=== PATIENT | male | born 1950 | race Caucasian/White ===

== ENCOUNTER 2019-07-27 05:21 | Inpatient (IN) | payer MEDICARE, OTHER ==
[~2019-07-27 05:21] MED LIST: ACETAMINOPHEN 325 MG TABLET PO PRN; CEFAZOLIN SODIUM 2 GM in DEXTROSE 5%-WATER 100 ML IV PRN; CELECOXIB 200 MG CAPSULE PO PRN; LACTATED RINGERS 1000 ML IV PRN; LIDOCAINE 0.5% INJ-PF (5 MG/ML) 50 ML SDV SUBCUT PRN; ONDANSETRON HCL INJ/PF 4 MG/2 ML SDV IV PRN; OXYCODONE HCL SR 10 MG TABLET PO PRN; TRAMADOL HCL 50 MG TABLET PO PRN; TRANEXAMIC ACID INJ/PF 1,000 MG/10 ML SDV IV PRN; VANCOMYCIN HCL 1,000 MG in DEXTROSE 5%-WATER 250 ML IV PRN
[2019-07-27] MEDS ORDERED: CELECOXIB 200 MG CAPSULE ONE (06:10)
[2019-07-27] MEDS ORDERED: OXYCODONE HCL SR 10 MG TABLET PO ONE (06:11)
[2019-07-27] MEDS ORDERED: ONDANSETRON HCL INJ/PF 4 MG/2 ML SDV ONE ×2 (06:11→07:00)
[2019-07-27] MEDS ORDERED: TRAMADOL HCL 50 MG TABLET ONE (06:13)
[2019-07-27] MEDS ORDERED: TRANEXAMIC ACID INJ/PF 1,000 MG/10 ML SDV ONE (06:34)
[2019-07-27] MEDS ORDERED: ACETAMINOPHEN 325 MG TABLET ONE (06:39)
[2019-07-27] MEDS ORDERED: FENTANYL CITRATE INJ/PF 100 MCG/2 ML AMPUL ONE ×3 (07:00→10:47)
[2019-07-27] MEDS ORDERED: MIDAZOLAM 2 MG/2 ML INJ ONE (07:00)
[2019-07-27] MEDS ORDERED: PROPOFOL INJ 200 MG/20 ML VIAL IV ONE (07:01)
[2019-07-27] MEDS ORDERED: LIDOCAINE 0.5% INJ-PF (5 MG/ML) 50 ML SDV ONE (07:01)
[2019-07-27] MEDS ORDERED: BACITRACIN INJ 50,000 UNIT VIAL ONE (07:13)
[2019-07-27] MEDS ORDERED: BUPIVACAINE HCL 0.25 % INJ/PF (2.5 MG/1 ML) 30 ML VIAL ONE (07:13)
[2019-07-27] MEDS ORDERED: VANCOMYCIN HCL INJ 1000 MG VIAL ONE (07:13)
[2019-07-27] MEDS ORDERED: GENTAMICIN SULFATE INJ 80 MG/2 ML VIAL ONE (07:13)
[2019-07-27] MEDS ORDERED: KETOROLAC TROMETHAMINE 60 MG/2 ML SDV ONE (07:14)
[2019-07-27] MEDS ORDERED: MORPHINE SULFATE 10 MG/ML INJ ONE (07:17)
[2019-07-27] MEDS ORDERED: MEPERIDINE HCL/PF INJ 25 MG/1 ML DISP.SYRIN IV PRN (08:47)
[2019-07-27] MEDS ORDERED: PROMETHAZINE HCL INJ 25 MG/1 ML VIAL IV PRN ×2 (08:47)
[2019-07-27] MEDS ORDERED: DIPHENHYDRAMINE HCL 50 MG/ML VIAL IV PRN (08:47)
[2019-07-27] MEDS ORDERED: MORPHINE SULFATE 10 MG/ML INJ IV PRN (08:47)
[2019-07-27] MEDS ORDERED: OXYCODONE-ACETAMINOPHEN 5-325 MG TABLET PO PRN ×2 (08:47)
[2019-07-27] MEDS ORDERED: ONDANSETRON HCL INJ/PF 4 MG/2 ML SDV IV PRN (08:47)
[2019-07-27] MEDS ORDERED: FENTANYL CITRATE INJ/PF 100 MCG/2 ML AMPUL IV PRN ×3 (08:47)
[2019-07-27] MEDS ORDERED: DEXAMETHASONE SOD PHOSPHATE INJ 4 MG/1 ML VIAL ONE ×2 (10:00→10:05)
[2019-07-27] MEDS ORDERED: SUCCINYLCHOLINE CHLORIDE INJ 200 MG/10 ML VIAL ONE (10:00)
--- NOTE | 2019-07-27 11:03 | Operative Report ---
Operative Report DATE OF SURGERY: 07/27/19 PREOPERATIVE DIAGNOSIS: Right knee primary osteoarthritis POSTOPERATIVE DIAGNOSIS: Right knee primary osteoarthritis OPERATION: Right total knee replacement SURGEON: ALEX GAITAN JR ANESTHESIA: Other - Adductor Canal in the PACU COMPLICATIONS: none ESTIMATED BLOOD LOSS: 50 cc PROCEDURE: Components: Right total knee: 67.5 femur, 79 x 10 tibia, and a T4 patella BRIEF HISTORY: 77 year old male/female with severe degenerative arthritis of right knee, which has failed conservative treatment and has elected for a total knee arthroplasty. Risks include but are not limited to bleeding, infection, anesthesia, , injury to nerve or vessel, pain, scar, leg length inequality, dislocation, future surgery, and blood clots. Patient read through the pre-op counseling form and signed and solicited for surgery on their right knee. OPERATIVE PROCEDURE: Patient was brought to the operating room on and underwent general anesthesia due to a discussion between the patient and the anesthesiologist. After proper anesthesia was obtained, patient was positioned, padded, prepped, and draped in the usual sterile fashion on the operating room table. 2 grams of Ancef and 1 g of vancomycin were given. Appropriate time out was performed. Anterior incision and medial-parapatella approach was performed. Severe degenerative arthritis was noted. Osteophytes were removed from the femur and tibia, and the remainder of the ACL and PCL were removed. The distal femur was drilled, the canal was irrigated and the distal femoral guide was placed. The distal femur was cut to 5 degrees of varus. The proximal tibia was then prepared and cut perpendicular to the tibial shaft axis and measured to a 79 tibia. The tensor was placed in flexion and the femur was sized to exceed 7.5. The AP block was placed and anterior-posterior cuts were made. Posterior osteophytes were removed and the flexion gap measured to be 10 mm. The tensor was placed in extension and the extension gap was balanced with releases until the goniometer on the tensor measured to 0. A 10 block was used to confirm symmetric flexion and extension gaps. The femoral notch and chamfer cuts were made, and trial femur placed which had excellent fit. The rotating tibial plastic was placed and rotation marked. We utilized a Vanguard III 60 revision tibial baseplate in order to obtain extra stability with a 40 mm stem. The baseplate was pinned in place at appropriate rotation and reamed up to an 18 stem. A small tibial cruciate wing was broached. Following this a 10 mm trial was placed as well as a femoral trial. The patella AP aspect was measured to be 6 mm and patella was cut parallel to the anterior patella surface. A 34 mm button was placed medially and superiorly as possible and the patella-button construct again measured 26 mm. The patella tracked well. No need for a lateral release. He had excellent balance and stability and we proceeded with these measurements. Cement fixation places made on the femur and tibia, and pulsatile irrigation of the rupesh and soft tissue surfaces. The rupesh surfaces were cleaned and dried, and cementation of the femur, tibia, and patella. Periarticular injection with Marcaine and Toradol was performed. The knee was irrigated with antibiotic solution, betadine solution, and antibiotic solution. A gram of Vancomycin was placed intra-articularly. The extensor mechanism was closed with number 2 Stratofix, the subcutaneous tissue closed with 2-0 Vicryl and the skin closed with 3-0 running monocryl. A silver dressing was applied. All needle sponge and instrument counts were correct. Patient was awakened from sedation anesthesia and taken to recovery room in good condition. Alex Gaitan DO
[2019-07-27] MEDS ORDERED: LIDOCAINE 2% INJ (20 MG/ML) 20 ML MDV ONE (11:04)
[2019-07-27] MEDS ORDERED: ROPIVACAINE HCL 0.5% INJ/PF (5 MG/1 ML) 30 ML SDV ONE (11:04)
[2019-07-27] MEDS ORDERED: LIDOCAINE 2%/EPINEPHRINE INJ 20 ML VIAL ONE (11:04)
--- NOTE | 2019-07-27 11:08 | RADIOLOGY REPORT (SQ) ---
EXAM DESCRIPTION: KNEE RIGHT 2 VIEWS COMPLETED DATE/TIME: 07/27/2019 10:56 am REASON FOR STUDY: post op pacu M17.0 BILATERAL PRIMARY OSTEOARTHRITIS OF KNEE COMPARISON: None. NUMBER OF VIEWS: Two views. TECHNIQUE: AP and lateral radiographic images acquired of the right knee. LIMITATIONS: None. FINDINGS: Postoperative images show a right knee arthroplasty in good position. IMPRESSION: Right knee arthroplasty. Refer to operative note for further information. TECHNICAL DOCUMENTATION: JOB ID: [id number] [employer]- All Rights Reserved Reading location - IP/workstation name: [email or web address]
[2019-07-27] MEDS ORDERED: TRAMADOL HCL 50 MG TABLET PO PRN ×2 (13:11→18:35)
[2019-07-27] MEDS ORDERED: OXYCODONE HCL IR 5 MG TABLET PO PRN ×3 (13:11→18:34)
[2019-07-27] MEDS: ACETAMINOPHEN 325 MG TABLET PO SCH ×2 (15:55→21:37)
[2019-07-27] MEDS: GABAPENTIN 100 MG CAPSULE PO SCH (19:54)
[2019-07-27] MEDS: CEFAZOLIN SODIUM 2 GM in DEXTROSE 5%-WATER 100 ML IV SCH (19:54)
[2019-07-28] MEDS: CEFAZOLIN SODIUM 2 GM in DEXTROSE 5%-WATER 100 ML IV SCH (02:02)
[2019-07-28] MEDS: ACETAMINOPHEN 325 MG TABLET PO SCH (05:41)
--- NOTE | 2019-07-28 07:42 | PDOC PROGRESS REPORT ---
Subjective Progress Note for:: 07/28/19 Subjective:: The patient is doing excellent this morning. He is ambulating with minimal pain. He has no new signs or symptoms. No overnight issues or reports of shortness of breath, chest pain. Reason For Visit: M17.0 BILATERAL PRIMARY OSTEOARTHRITIS OF KNEE Physical Exam Vital Signs: Temp Pulse Resp BP Pulse Ox 98.6 F 83 16 126/77 H 96 07/28/19 00:00 07/28/19 00:00 07/28/19 00:00 07/28/19 00:00 07/28/19 00:00 Intake & Output 07/27/19 07/28/19 07/29/19 06:59 06:59 06:59 Intake Total 3052 Output Total 4020 Balance -968 Weight 69.85 kg 80.2 kg Physical Exam: General appearance: PRESENT: no acute distress, cooperative, well-nourished Head exam: PRESENT: atraumatic, normocephalic Eye exam: PRESENT: EOMI Ear exam: PRESENT: normal external ear exam Mouth exam: PRESENT: neck supple Neck exam: ABSENT: tracheal deviation Respiratory exam: PRESENT: symmetrical, unlabored. ABSENT: accessory muscle use, wheezes Pulses: PRESENT: normal radial pulses, normal dorsalis pedis pul Vascular exam: PRESENT: normal capillary refill GI/Abdominal exam: ABSENT: distended, firm Extremities exam: PRESENT: full ROM of bilateral shoulders, elbows wrists, knees, hips and ankles without pain Musculoskeletal exam: PRESENT: full ROM, normal inspection Neurological exam: PRESENT: alert, awake, oriented to person, oriented to place, oriented to time Psychiatric exam: PRESENT: appropriate affect. ABSENT: agitated Focused psych exam: ABSENT: catatonic Skin exam: PRESENT: intact. ABSENT: dry All as above aside from that noted in the HPI and the following: Right lower extremity neurovascular intact. Pulses 2+. Wound clean dry and intact. Moderate swelling and ecchymosis as expected for postoperative day #1. Compartments soft. Results Impressions: Knee X-Ray 07/27/19 10:36 IMPRESSION: Right knee arthroplasty. Refer to operative note for further information. Assessment & Plan - Diagnosis (1) Osteoarthritis of right knee Is this a current diagnosis for this admission?: Yes Plan: Patient is doing great for postoperative day #1. He is ambulating voluntarily with minimal pain. -He is to begin aspirin daily today -Pain medications have been prescribed and given to him in the preoperative setting -He has been giving postoperative instructions and if he has any further questions he is to call my office -Postoperative follow-up appointment has been arranged for 10 to 14 days -He may leave the dressing in place for 7 days. -Weightbearing as tolerated, activity as tolerated, PT OT as soon as possible on an outpatient setting - Complete post operative antibiotics - Time Time Spent with patient: 15-24 minutes
[2019-07-28] MEDS ORDERED: METFORMIN HCL 500 MG TABLET PO SCH (08:00)
[2019-07-28] MEDS: GABAPENTIN 100 MG CAPSULE PO SCH (09:26)
[2019-07-28] MEDS ORDERED: CELECOXIB 200 MG CAPSULE PO SCH (10:00)
[2019-07-28] MEDS ORDERED: ASPIRIN 325 MG TABLET PO SCH (10:00)
[2019-07-28] MEDS ORDERED: DOCUSATE SODIUM 100 MG CAPSULE PO SCH (10:00)
[2019-07-28] MEDS ORDERED: ACETAMINOPHEN 325 MG TABLET PO SCH (10:00)
[2019-07-28] MEDS ORDERED: (PENDING PHARMACY ID) (Metformin Hcl [Metformin Hcl Er] 500 MG) PO SCH (10:00)
[2019-07-28] MEDS ORDERED: ACETAMINOPHEN 1300 MG PO SCH (10:00)
[2019-07-28 13:16] VITALS: BP 126/77
--- NOTE | 2019-07-28 16:42 | PDOC DISCHARGE SUMMARY ---
Impression - Admit/DC Date/PCP Admission Date/Primary Care Provider: 07/27/19 05:21 Discharge Date: 07/28/19 - Discharge Diagnosis (1) Osteoarthritis of right knee Is this a current diagnosis for this admission?: Yes - Assessment Summary: Patient was admitted to the hospital status post right total knee arthroplasty for perioperative pain management and medical management. He was evaluated over the course of his stay and deemed to be stable throughout without any further medical needs requiring sustained hospitalization. On postoperative day #1 he is doing very well and ambulating on his own. He was a eating drinking and had return to normal functioning including urinating and passing gas. As of today he is happy to be doing very well and wishing to re turn home. He has worked with physical therapy who is also deemed him stable for discharge home. He has a supportive social structure at home who will help him when he arrives. He has been given instructions and all questions were answered. He is to follow-up in my office in 10 to 14 days. He is being discharged home at this time. - Additional Information Resuscitation Status: Full Code Discharge Diet: As Tolerated Discharge Activity: Activity As Tolerated, Keep Legs Elevated, No Lifting Over 10 Pounds, Slowly Increase Activity, Walk Frequently Referrals: ALEX GAITAN JR, DO [ACTIVE PROVISIONAL STAFF] - 08/14/19 1:20 pm Home Medications: Metformin HCl [Metformin HCl ER] 500 mg PO DAILY 07/17/19 Omeprazole 20 mg PO QPM 07/17/19 Docusate Sodium [Colace 100 mg Capsule] 200 mg PO DAILY 07/27/19 Acetaminophen [Tylenol 325 mg Tablet] 975 mg PO Q8 tablet 07/28/19 Aspirin [Aspirin 325 mg Tablet] 325 mg PO DAILY tablet 07/28/19 Celecoxib [Celebrex 200 mg Capsule] 200 mg PO DAILY capsule 07/28/19 Gabapentin [Neurontin 100 mg Capsule] 100 mg PO BID capsule 07/28/19 Oxycodone HCl [Oxy-Ir 5 mg Tablet] 5 mg PO Q4HP PRN tablet 07/28/19 Oxycodone HCl [Oxy-Ir 5 mg Tablet] 10 mg PO Q4HP PRN tablet 07/28/19 Tramadol HCl [Ultram 50 mg Tablet] 50 mg PO Q4HP PRN tablet 07/28/19 History of Present Illiness History of Present Illness: TJ CHAPMAN is a 69 year old male Physical Exam Vital Signs: Temp Pulse Resp BP Pulse Ox 98.7 F 79 18 126/77 H 95 07/28/19 12:52 07/28/19 12:52 07/28/19 12:52 07/28/19 12:52 07/28/19 12:52 Intake & Output 07/27/19 07/28/19 07/29/19 06:59 06:59 06:59 Intake Total 3052 Output Total 4020 Balance -968 Weight 69.85 kg 80.2 kg Results Laboratory Results: POC Glucose 139 mg/dL (70-110) H 07/27/19 06:51 Impressions: Knee X-Ray 07/27/19 10:36 IMPRESSION: Right knee arthroplasty. Refer to operative note for further information. Stroke Is this a Stroke Patient?: No Acute Heart Failure - Is this a Heart Failure Patient?: No
[2019-07-28] MEDS ORDERED: PANTOPRAZOLE SODIUM 20 MG TABLET.DR PO SCH (18:00)
== END 2019-07-28 14:30 | disposition home or self-care (01) | DRG 470 ==
LOC: INOR 05:21 → 4S 12:08
PROVIDERS: ADMIT Orthopaedic Surgery; ATTEND Orthopaedic Surgery
PROC: 0SRC0J9 Replacement of Right Knee Joint with Synthetic Substitute, Cemented, Open Approach (ICD-10-PCS; principal; 2019-07-27 07:30)
DX: M17.11 Unilateral primary osteoarthritis, right knee (principal); Z79.899 Other long term (current) drug therapy
CPT/HCPCS: 01402; 82962; J0330; J0690; J1100; J1580; J1885; J2250; J2270; J2405; J2704; J2795; J3010; J3370; J3490; J7060

== ENCOUNTER 2019-08-25 06:05 | Observation (INO) | payer MEDICARE, OTHER ==
[~2019-08-25 06:05] MED LIST changes: +ACETAMINOPHEN 325 MG TABLET ONE; -ACETAMINOPHEN 325 MG TABLET PO PRN; -CEFAZOLIN SODIUM 2 GM in DEXTROSE 5%-WATER 100 ML IV PRN; +CELECOXIB 200 MG CAPSULE ONE; -CELECOXIB 200 MG CAPSULE PO PRN; +GABAPENTIN 100 MG CAPSULE ONE; -LACTATED RINGERS 1000 ML IV PRN; -LIDOCAINE 0.5% INJ-PF (5 MG/ML) 50 ML SDV SUBCUT PRN; -ONDANSETRON HCL INJ/PF 4 MG/2 ML SDV IV PRN; +ONDANSETRON HCL INJ/PF 4 MG/2 ML SDV ONE; +OXYCODONE HCL SR 10 MG TABLET PO ONE; -OXYCODONE HCL SR 10 MG TABLET PO PRN; +SCOPOLAMINE HYDROBROMIDE 1.5 MG PATCH.TD72 ONE; +TRAMADOL HCL 50 MG TABLET ONE; -TRAMADOL HCL 50 MG TABLET PO PRN; -TRANEXAMIC ACID INJ/PF 1,000 MG/10 ML SDV IV PRN; -VANCOMYCIN HCL 1,000 MG in DEXTROSE 5%-WATER 250 ML IV PRN
[2019-08-25] MEDS ORDERED: ONDANSETRON HCL INJ/PF 4 MG/2 ML SDV ONE (06:22)
[2019-08-25] MEDS ORDERED: FENTANYL CITRATE INJ/PF 100 MCG/2 ML AMPUL ONE ×2 (06:22→12:57)
[2019-08-25] MEDS ORDERED: PROPOFOL INJ 200 MG/20 ML VIAL IV ONE ×2 (06:22→12:57)
[2019-08-25] MEDS ORDERED: MIDAZOLAM 2 MG/2 ML INJ ONE ×2 (06:22→12:57)
[2019-08-25] MEDS ORDERED: LIDOCAINE 0.5% INJ-PF (5 MG/ML) 50 ML SDV ONE (06:23)
[2019-08-25] MEDS ORDERED: VANCOMYCIN HCL 1,000 MG in DEXTROSE 5%-WATER 250 ML IV PRN (07:30)
[2019-08-25] MEDS ORDERED: CEFAZOLIN 2 GM/D5W RTU 2 GM/50 ML RTUPB IV PRN (07:30)
[2019-08-25] MEDS ORDERED: EPINEPHRINE INJ/PF 1 MG/1 ML AMPULE ONE (08:37)
[2019-08-25] MEDS ORDERED: CEFAZOLIN SODIUM 2 GM in DEXTROSE 5%-WATER 100 ML IV PRN (10:15)
[2019-08-25] MEDS ORDERED: VANCOMYCIN HCL INJ 1000 MG VIAL ONE (12:38)
[2019-08-25] MEDS ORDERED: LIDOCAINE 1% INJ-PF (10 MG/ML) 30 ML SDV ONE (12:38)
[2019-08-25] MEDS ORDERED: BUPIVACAINE HCL 0.25 % INJ/PF (2.5 MG/1 ML) 30 ML VIAL ONE (12:38)
[2019-08-25] MEDS ORDERED: BACITRACIN INJ 50,000 UNIT VIAL ONE (12:38)
[2019-08-25] MEDS ORDERED: KETOROLAC TROMETHAMINE 60 MG/2 ML SDV ONE (13:05)
[2019-08-25] MEDS ORDERED: GENTAMICIN SULFATE INJ 80 MG/2 ML VIAL ONE (13:09)
[2019-08-25] MEDS ORDERED: TRANEXAMIC ACID INJ/PF 1,000 MG/10 ML SDV ONE ×2 (13:09→13:13)
[2019-08-25] MEDS ORDERED: PROMETHAZINE HCL INJ 25 MG/1 ML VIAL IV PRN ×2 (14:42)
[2019-08-25] MEDS ORDERED: ONDANSETRON HCL INJ/PF 4 MG/2 ML SDV IV PRN (14:42)
[2019-08-25] MEDS ORDERED: MORPHINE SULFATE 10 MG/ML INJ IV PRN ×2 (14:42→17:30)
[2019-08-25] MEDS ORDERED: FENTANYL CITRATE INJ/PF 100 MCG/2 ML AMPUL IV PRN ×3 (14:42)
[2019-08-25] MEDS ORDERED: MEPERIDINE HCL/PF INJ 25 MG/1 ML DISP.SYRIN IV PRN (14:42)
[2019-08-25] MEDS ORDERED: OXYCODONE-ACETAMINOPHEN 5-325 MG TABLET PO PRN ×2 (14:42)
[2019-08-25] MEDS ORDERED: DIPHENHYDRAMINE HCL 50 MG/ML VIAL IV PRN (14:42)
[2019-08-25] MEDS ORDERED: LIDOCAINE 2% INJ (20 MG/ML) 20 ML MDV ONE (16:10)
[2019-08-25] MEDS ORDERED: ROPIVACAINE HCL 0.5% INJ/PF (5 MG/1 ML) 30 ML SDV ONE (16:10)
[2019-08-25] MEDS ORDERED: LIDOCAINE 2%/EPINEPHRINE INJ 20 ML VIAL ONE (16:10)
[2019-08-25] MEDS ORDERED: ACETAMINOPHEN 1,000 MG/100 ML RTUPB IV ONE (16:53)
--- NOTE | 2019-08-25 17:16 | Operative Report ---
Operative Report DATE OF SURGERY: 08/25/19 PREOPERATIVE DIAGNOSIS: Left knee primary osteoarthritis POSTOPERATIVE DIAGNOSIS: Left knee primary osteoarthritis OPERATION: Left total knee arthroplasty SURGEON: ALEX GAITAN JR ANESTHESIA: GA COMPLICATIONS: None ESTIMATED BLOOD LOSS: 20 cc PROCEDURE: Components: Biomet Vanguard total knee: 65 femur, 79 x 12 tibia 360, and a 34 patella Additionally he had a 360 system used for his considerable bone loss in the medial aspect of his knee, in conjunction with a 18 x 40 splined knee stem with a small cruciate wing BRIEF HISTORY: 69year old male with severe degenerative arthritis of left knee, which has failed conservative treatment and has elected for a total knee arthroplasty. They had been having severe debilitating pain that was preventing him from performing daily activities including ambulating for short distances, getting in and out of there car, going up and down stairs, and overall decreasing their quality of life due to their avoidance of activity because of pain. Pain is constant but worse with activity he explains it is a dull ache and he felt like his knee was completely going to give out and he was no longer going to be able to walk, nothing improves the pain and though it reaches an 8 out of 10 to a 9 out of 10 the most debilitating thing is his severe varus d eformity locking and mechanical symptoms that lead him to not be able to trust his knee and feel that he actually functionally cannot walk and might fall and injure himself. They failed conservative management including ylxp-spx-rnopubu pain medication such as Tylenol and ibuprofen. X-rays demonstrated severe ctxv-sz-cqlj osteoarthritis with subchondral sclerosis osteophyte formation and joint space narrowing, additionally there is a very large medial defect leading to severe varus deformity due to his exceptionally severe osteoarthritis. Risks include but are not limited to bleeding, infection, anesthesia, , injury to nerve or vessel, pain, scar, leg length inequality, dislocation, future surgery, and blood clots. Patient read through the pre-op counseling form and signed and solicited for surgery on their left knee. OPERATIVE PROCEDURE: Patient was brought to the operating room on and underwent general anesthesia. After proper anesthesia was obtained, patient was positi oned, padded, prepped, and draped in the usual sterile fashion on the operating room table. 2 grams of Ancef and 1 g of vancomycin were given. Appropriate time out was performed. Anterior incision and medial-parapatella approach was performed. Severe degenerative arthritis was noted. Osteophytes were removed from the femur and tibia, and the remainder of the ACL and PCL were removed. The distal femur was drilled, the canal was irrigated and the distal femoral guide was placed. The distal femur was cut to 5 degrees of varus. The proximal tibia was then prepared and cut perpendicular to the tibial shaft axis and measured to a 79 tibia. The knee was then brought into extension and a 10 spacer block. This was tight, and so we needed to determine if we needed more space off of the ti ag or the distal femur. The tensor was placed in flexion and the femur was sized to 67.5. The AP block was placed and anterior-posterior cuts were made. Posterior osteophytes were removed and the 10 block was attempted to be placed into the flexion gap, however this was exceptionally tight. Therefore we downsized the femur to a 65, specifically removing the posterior condyles. A 10 block had appropriate balance at this point. The tensor was placed in extension and the extension gap was balanced with releases until the goniometer on the tensor measured to 0. He required a release of the MCL off of the distal insertion on the tibia. The femoral notch and chamfer cuts were made, and trial femur placed which had excellent fit. The rotating tibial plastic was placed and rotation marked. The stemmed tibial cutout was made for the stemmed tibial trial and excellent stability was had in flexion and extension. A wing broach was used to make cuts for the winged implant. The patella AP aspect was measured to 25 mm and patella was cut parallel to the anterior patella surface. A 34 mm button was placed medially and superiorly as possible and the patella- button construct again measured 25 mm. The patella tracked well. No need for a lateral release. Cement fixation places made on the femur and tibia, and pulsatile irrigation of the rupesh and soft tissue surfaces. The rupesh surfaces were cleaned and dried, and cementation of the femur, tibia, and patella. Periarticular injection with Marcaine and Toradol was performed. The knee was irrigated with antibiotic solution, betadine solution, and antibiotic solution. A gram of Vancomycin was placed intra-articularly. The extensor mechanism was closed with number 2 Stratofix, the subcutaneous tissue closed with 2-0 Vicryl and the skin closed with 3-0 running monocryl. A silver dressing was applied. All needle sponge and instrument counts were correct. Patient was awakened from sedation anesthesia and taken to recovery room in good condition. Alex Gaitan DO
[2019-08-25] MEDS ORDERED: OXYCODONE HCL IR 5 MG TABLET PO PRN (17:29)
[2019-08-25] MEDS ORDERED: TRAMADOL HCL 50 MG TABLET PO PRN (17:30)
[2019-08-25] MEDS ORDERED: PANTOPRAZOLE SODIUM 20 MG TABLET.DR PO PRN (17:33)
[2019-08-25] MEDS ORDERED: DIPHENHYDRAMINE HCL 25 MG CAPSULE PO PRN (17:33)
[2019-08-25] MEDS ORDERED: ZOLPIDEM TARTRATE 5 MG TABLET PO PRN (17:34)
[2019-08-25] MEDS ORDERED: DOCUSATE SODIUM 100 MG CAPSULE PO PRN (17:35)
[2019-08-25] MEDS ORDERED: ONDANSETRON 4 MG TAB.RAPDIS PO PRN (17:36)
[2019-08-25] MEDS ORDERED: NORMAL SALINE 1000 ML 1,000 ML IV PRN (17:36)
--- NOTE | 2019-08-25 17:51 | RADIOLOGY REPORT (SQ) ---
EXAM DESCRIPTION: KNEE LEFT 2 VIEWS COMPLETED DATE/TIME: 08/25/2019 5:03 pm REASON FOR STUDY: POST OP M17.12 UNILATERAL PRIMARY OSTEOARTHRITIS, LEFT KNEE COMPARISON: None. NUMBER OF VIEWS: Two views TECHNIQUE: Digital radiographic images of the left knee post-procedure. LIMITATIONS: None. FINDINGS: BONES: No worrisome or unexpected findings post-procedure. DEVICE: Total knee arthroplasty. SOFT TISSUES: No worrisome findings. Expected postoperative soft tissue changes. IMPRESSION: SATISFACTORY POSTOPERATIVE LEFT KNEE. TECHNICAL DOCUMENTATION: JOB ID: [id number] [employer]- All Rights Reserved Reading location - IP/workstation name: [email or web address]
[2019-08-25] MEDS: GABAPENTIN 100 MG CAPSULE PO SCH (21:38)
[2019-08-25] MEDS: ACETAMINOPHEN 325 MG TABLET PO SCH (21:38)
[2019-08-25] MEDS: CEFAZOLIN SODIUM 2 GM in DEXTROSE 5%-WATER 100 ML IV SCH (21:40)
[2019-08-25] MEDS: KETOROLAC TROMETHAMINE INJ/PF 30 MG/1 ML SDV IV SCH (21:40)
[2019-08-26] MEDS: ACETAMINOPHEN 325 MG TABLET PO SCH ×2 (05:03→14:24)
[2019-08-26] MEDS: CEFAZOLIN SODIUM 2 GM in DEXTROSE 5%-WATER 100 ML IV SCH (05:11)
[2019-08-26] MEDS: KETOROLAC TROMETHAMINE INJ/PF 30 MG/1 ML SDV IV SCH ×2 (05:13→14:47)
[2019-08-26] MEDS: OXYCODONE HCL IR 5 MG TABLET PO PRN ×2 (07:08→11:03)
--- NOTE | 2019-08-26 08:09 | PDOC PROGRESS REPORT ---
Subjective Progress Note for:: 08/26/19 Subjective:: The patient is doing well this AM. Pain is present but not out of proportion and well controlled on their current medications. There are no new symptoms or overnight events. Overall they are felling well without complaints. They deny chest pain, shortness of breath or motor or sensory loss. Reason For Visit: M17.12 UNILATERAL PRIMARY OSTEOARTHRITIS, LEFT KNE Physical Exam Vital Signs: Temp Pulse Resp BP Pulse Ox 100.0 F 84 18 131/76 H 95 08/25/19 22:30 08/25/19 22:30 08/25/19 22:30 08/25/19 22:30 08/25/19 22:30 Intake & Output 08/25/19 08/26/19 08/27/19 06:59 06:59 06:59 Intake Total 0 6130 Output Total 3515 Balance 0 2615 Weight 76 kg 76 kg Physical Exam: General appearance: PRESENT: no acute distress, cooperative, well-nourished Head exam: PRESENT: atraumatic, normocephalic Eye exam: PRESENT: EOMI Ear exam: PRESENT: normal external ear exam Mouth exam: PRESENT: neck supple Neck exam: ABSENT: tracheal deviation Respiratory exam: PRESENT: symmetrical, unlabored. ABSENT: accessory muscle use, wheezes Pulses: PRESENT: normal radial pulses, normal dorsalis pedis pul Vascular exam: PRESENT: normal capillary refill GI/Abdominal exam: ABSENT: distended, firm Extremities exam: PRESENT: full ROM of bilateral shoulders, elbows wrists, knees, hips and ankles without pain Musculoskeletal exam: PRESENT: full ROM, normal inspection of all 4 extremities aside from that noted below. Neurological exam: PRESENT: alert, awake, oriented to person, oriented to place, oriented to time Psychiatric exam: PRESENT: appropriate affect. ABSENT: agitated Focused psych exam: ABSENT: catatonic Skin exam: PRESENT: intact. ABSENT: dry All as above aside from that noted in the HPI and the following: LLE -Pulses 2+ distally -Compartments soft -Wound dressing clean dry and intact no drainage in appropriate swelling for postop day -Sensation grossly intact to L3-4-5 S1 -Motor grossly intact to EHL TA gastroc and quad - Able to perform quad extension and elevate heel off of bed. Results Laboratory Results: 08/25/19 08:34 Blood Type B POSITIVE Antibody Screen NEGATIVE Impressions: Knee X-Ray 08/25/19 00:00 IMPRESSION: SATISFACTORY POSTOPERATIVE LEFT KNEE. Assessment & Plan - Diagnosis (1) Status post left knee replacement Is this a current diagnosis for this admission?: Yes Plan: - 2 doses of Ancef postoperatively q 8 hours to complete 24 hours perioperatively -Weightbearing as tolerated, no precautions, encourage out of bed NATHAN for ADL training - PT/OT - Keep knee extended in bed, rolled towel under the ankle to obtain full extension -aspirin 325 daily for DVT prophylaxis for 6 weeks -multimodal pain management to avoid excessive narcotics, including gabapentin, tramadol, Toradol, acetaminophen. -Dressing should not be removed for 7 to 10 days until seen in the office -May shower with the dressing intact, if it starts to come off she should not get the incision wet. -I would like to follow the patient my office within the next 7 to [address] at [address] [place] [address]. in [place] office #: [phone] - Time Time Spent with patient: Less than 15 minutes
--- NOTE | 2019-08-26 08:13 | PDOC DISCHARGE SUMMARY ---
Impression - Admit/DC Date/PCP Admission Date/Primary Care Provider: 08/25/19 Discharge Date: 08/26/19 - Discharge Diagnosis (1) Status post left knee replacement Is this a current diagnosis for this admission?: Yes - Assessment Summary: Mr. lexis forte is a very pleasant 69-year-old male who presented to my clinic with chronic left knee pain that is been going on for over a year. They were diagnosed with severe left knee osteoarthritis after thorough work-up and attempts at conservative treatment including activity modification and eoic-szw-iopqnst pain medication, they were having severe difficulty with ambulation and was taking over the counter pain medication for daily activity. They found the pain debilitating and decreasing their quality of life as they were unable to perform activities of daily living such as ambulating short distances and getting in and out of the car. After a thorough work-up including x-rays that demonstrated joint space narrowing, rfdm-[id number]-fnkp contact, sub chondral sclerosis, and osteophyte formation as well as discussing risks and benefits and other treatment options, the patient elected to proceed with a left total knee replacement. They were brought to the operating room on 08/25/2019 and underwent a left total knee arthroplasty and tolerated procedure very well with out complication. They were then admitted to the hospital floor for postoperative medical management, monitoring, and pain control. On postoperative day #1 they were ambulating well with physical therapy, to the degree that they approved them for discharge home. They were discharged home on 08/26/2019. They had no acute events or complications over the course of their stay. All detailed instructions and prescriptions were provided to the patient prior to admission on the year prior office visit. - Additional Information Resuscitation Status: Full Code Discharge Diet: Diabetic Discharge Activity: Activity As Tolerated, No Driving, Keep Legs Elevated, No Lifting/Push/Pulling, Slowly Increase Activity, No tub bath, Walk Frequently Prescriptions: Celecoxib [Celebrex 200 mg Capsule] 200 mg PO DAILY 30 Days #30 capsule Aspirin [Ecotrin 325 mg EC Tablet] 325 mg PO DAILY 42 Days #42 tabec Polyethylene Glycol 3350 [Miralax Powder 17 gm/Packet] 17 gm PO DAILY 14 Days #14 powd.pack Gabapentin [Neurontin 100 mg Capsule] 100 mg PO Q12 14 Days #28 capsule Oxycodone HCl [Oxy-Ir 5 mg Tablet] 5 mg PO Q4HP PRN 14 Days #30 tablet PRN Reason: Acetaminophen [Tylenol 325 mg Tablet] 1,000 mg PO BID #60 tablet Tramadol HCl [Ultram 50 mg Tablet] 50 mg PO Q4HP PRN 14 Days #30 tablet PRN Reason: Home Medications: Metformin HCl [Metformin HCl ER] 500 mg PO DAILY 07/17/19 Omeprazole 20 mg PO QPM 07/17/19 Docusate Sodium [Colace 100 mg Capsule] 200 mg PO DAILY 07/27/19 Acetaminophen [Tylenol 325 mg Tablet] 1,000 mg PO BID #60 tablet 08/26/19 Aspirin [Ecotrin 325 mg EC Tablet] 325 mg PO DAILY 42 Days #42 tabec 08/26/19 Celecoxib [Celebrex 200 mg Capsule] 200 mg PO DAILY 30 Days #30 capsule 08/26/19 Diphenhydramine HCl [Benadryl 25 mg Capsule] 25 mg PO Q6HP PRN #0 capsule 08/26/19 Docusate Sodium [Colace 100 mg Capsule] 100 mg PO TIDP PRN capsule 08/26/19 Gabapentin [Neurontin 100 mg Capsule] 100 mg PO Q12 14 Days #28 capsule 08/26/19 Oxycodone HCl [Oxy-Ir 5 mg Tablet] 5 mg PO Q4HP PRN 14 Days #30 tablet 08/26/19 Polyethylene Glycol 3350 [Miralax Powder 17 gm/Packet] 17 gm PO DAILY 14 Days #14 powd.pack 08/26/19 Tramadol HCl [Ultram 50 mg Tablet] 50 mg PO Q4HP PRN 14 Days #30 tablet 08/26/19 History of Present Illiness History of Present Illness: TJ CHAPMAN is a 69 year old male Physical Exam Vital Signs: Temp Pulse Resp BP Pulse Ox 100.0 F 84 18 131/76 H 95 08/25/19 22:30 08/25/19 22:30 08/25/19 22:30 08/25/19 22:30 08/25/19 22:30 Intake & Output 08/25/19 08/26/19 08/27/19 06:59 06:59 06:59 Intake Total 0 6130 Output Total 3515 Balance 0 2615 Weight 76 kg 76 kg Results Laboratory Results: POC Glucose 119 mg/dL (70-110) H 08/25/19 06:40 Blood Type B POSITIVE 08/25/19 08:34 Antibody Screen NEGATIVE 08/25/19 08:34 Impressions: Knee X-Ray 08/25/19 00:00 IMPRESSION: SATISFACTORY POSTOPERATIVE LEFT KNEE. Stroke Is this a Stroke Patient?: No Acute Heart Failure - Is this a Heart Failure Patient?: No
[2019-08-26] MEDS ORDERED: CELECOXIB 200 MG CAPSULE PO SCH (10:00)
[2019-08-26] MEDS ORDERED: ASPIRIN 325 MG TABLET, ENT COATED PO SCH (10:00)
[2019-08-26] MEDS ORDERED: POLYETHYLENE GLYCOL 3350 POWDER 17 GM/1 PACKET PO SCH (10:00)
[2019-08-26] MEDS: GABAPENTIN 100 MG CAPSULE PO SCH (10:27)
[2019-08-26 12:34] VITALS: BP 166/80
== END 2019-08-26 12:02 | disposition home or self-care (01) ==
LOC: OROUT 06:05 → EDSTATUS 09:15 → 4S 17:24 → OROUT 08-26 16:42
PROVIDERS: ADMIT Orthopaedic Surgery; ATTEND Orthopaedic Surgery
DX: M17.12 Unilateral primary osteoarthritis, left knee (principal); Z47.1 Aftercare following joint replacement surgery; Z79.899 Other long term (current) drug therapy; Z79.82 Long term (current) use of aspirin
CPT/HCPCS: 27447; 86900; 86901; 36415; 86850; 82962; 73560; 97161; 01402; C1713; C1887; J2795; A9270 ×11; J2250; J3490 ×6; J0690 ×2; J1885 ×3; J3010; J1580; J2270; J2405; J7060 ×3; J2704; J3370; J0131; J0171